=== PATIENT | male | born 1960 | race Caucasian/White ===

== ENCOUNTER 2022-05-04 12:31 | Day surgery (SDC) | payer OTHER, SELFPAY ==
[2022-04-29 13:06] VITALS: BMI 25.5
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
[2022-05-04 12:35] VITALS: BP 169/88; PULSE 71; RESP 16; TEMP 36.1; O2SAT 98
[2022-05-04] MEDS: Lactated Ringers 1,000 ML 100 ML IVCONT (12:55)
[2022-05-04 14:54] VITALS: BP 115/72; PULSE 67; RESP 16; TEMP 37.1; O2SAT 98
--- NOTE | 2022-05-04 14:57 | PM.OP ---
Brief Operative Note Date of Service: 05/04/22 Pre-op diagnosis: Screening Post-op diagnosis: other (Colon polyps) Procedure: Colonoscopy to the cecum with hot snare polypectomy x 2 Surgeon: Ramiro Porter Anesthesia: MAC Was an [employer] Work[employer] used for this Procedure?: No Estimated blood loss (mL): 0 Pathology: other (A. Ascending colon polyp B. Rectal polyp) Condition: stable Disposition: PACU
[2022-05-04 15:09] VITALS: BP 125/79; PULSE 62; RESP 18; TEMP 37.1; O2SAT 100
--- NOTE | 2022-05-05 01:09 | OP_ITS ---
SURGEON: Ramiro Porter MD INDICATIONS: The patient presents for evaluation of colorectal cancer screening. Full consent obtained from him for this, including risks of bleeding and perforation. PREOPERATIVE DIAGNOSIS: Colorectal cancer screening. POSTOPERATIVE DIAGNOSIS: Colorectal cancer screening, colon polyps, diverticulosis, and internal hemorrhoids. PROCEDURE PERFORMED: Colonoscopy to the cecum with hot snare polypectomy. ESTIMATED BLOOD LOSS: COMPLICATIONS: ANESTHESIA: ASSISTANTS: SPECIMENS: PREOPERATIVE MEDICATION USED: Monitored anesthesia care. DESCRIPTION OF PROCEDURE: The patient was placed in the left lateral decubitus position. The digital rectal exam revealed no abnormalities. The Olympus video pediatric colonoscope was entered into the rectum and advanced easily to the cecum. Once in the cecum, I did identify normal-appearing cecal pouch with appendiceal orifice and a normal-appearing ileocecal valve. The entire cecum and ileocecal valve appeared normal. There was transillumination of light deep in the right lower quadrant. The scope was slowly withdrawn assessing all mucosal surfaces carefully. Preparation was excellent. In the proximal ascending colon was an approximately 8 mm polyp, which was removed by hot snare polypectomy and recovered by suction. The polypectomy site appeared clean, without any sign of residual polyp nor bleeding. There was a moderate amount of diverticulosis in the sigmoid and descending colon. In the rectum was an approximately 6 to 8 mm polyp, which was removed by hot snare polypectomy, recovered by suction. The polypectomy site appeared clean, without any sign of residual polyp nor bleeding. I did not visualize any other polyps, colitis, nor angiodysplasia. In the rectum, scope was retroflexed visualizing internal hemorrhoids, but no other pathology. The rectal mucosa appeared normal. The scope was straightened and withdrawn from the patient. He tolerated the procedure well and was returned to recovery area in stable condition. IMPRESSION: 1. Colon polyps. 2. Diverticulosis. 3. Internal hemorrhoids. PLAN: The results of the pathology will be checked. If these are tubular adenomas, I would recommend a followup colonoscopy in 5 years. He was advised not to use any aspirin and NSAIDs for 1 week. MD DYLAN Enrique/SENAIT / [phone] GINA
== END 2022-05-04 15:57 | disposition home or self-care (01) ==
PROVIDERS: PCP Internal Medicine; Visit Provider Internal Medicine
PROC: 0DJD8ZZ Inspection of Lower Intestinal Tract, Via Natural or Artificial Opening Endoscopic (ICD-10-PCS; CPT 45378; principal; 2022-05-04 13:40)
DX: Z12.11 Encounter for screening for malignant neoplasm of colon (principal); D12.2 Benign neoplasm of ascending colon; D12.8 Benign neoplasm of rectum; K57.30 Diverticulosis of large intestine without perforation or abscess without bleeding; K64.8 Other hemorrhoids; I10 Essential (primary) hypertension; Z79.899 Other long term (current) drug therapy; Z88.7 Allergy status to serum and vaccine
CPT/HCPCS: 45385; 88305

== ENCOUNTER 2024-04-06 11:26 | Outpatient (AMB) | payer OTHER, SELFPAY ==
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
[2024-04-06 11:33] VITALS: BP 122/80; PULSE 60; O2SAT 98; BMI 26.8
== END 2024-04-06 12:15 | disposition home or self-care (01) ==
PROVIDERS: PCP Internal Medicine; Visit Provider Physician Assistant
DX: S89.91XA Unspecified injury of right lower leg, initial encounter (principal)
CPT/HCPCS: 99203